=== PATIENT | male | born 1955 | race Two or more races ===

== ENCOUNTER 2024-10-15 23:46 | Emergency (ER) | payer SELFPAY ==
[2024-10-15 23:58] VITALS: BP 146/91; PULSE 130; RESP 18; TEMP 36.8; O2SAT 96
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
[2024-10-16 00:01] VITALS: BMI 25.8
[2024-10-16 00:36] VITALS: PULSE 126; RESP 18; O2SAT 96
== END 2024-10-16 00:54 ==
PROVIDERS: Emergency Provider Emergency Medicine
DX: Z02.89 Encounter for other administrative examinations (principal); Z04.1 Encounter for examination and observation following transport accident
CPT/HCPCS: 99281